=== PATIENT | male | born 1990 | race Caucasian/White ===

== ENCOUNTER 2016-08-11 13:50 | Emergency (ER) | payer OTHER ==
[~2016-08-11] VITALS: Ht 167.6 cm; Wt 80.4 kg
[2016-08-11 13:52] VITALS: TEMP 36.7; Ht 167.6 cm; Wt 80.4 kg
[2016-08-11] MEDS ORDERED: DEXAMETHASONE SOD INJ 10 MG/ML VIAL IM ONE (14:30)
[2016-08-11] MEDS ORDERED: AMPH30CA3 PO (14:42)
--- NOTE | 2016-08-11 14:42 | EMERGENCY ROOM VISIT NOTE ---
ED Visit Note First contact with patient: 14:13 CHIEF COMPLAINT: Rash HISTORY OF PRESENT ILLNESS: This 25-year-old male patient presents to the emergency department ambulatory complaining of a rash to the arms and legs which started several weeks ago. The patient denies fever, chills, nausea, or loss of appetite. They deny any URI symptoms. The patient has tried steroid injection. The patient states the rash is itchy and rates the discomfort as 6/ 10. No change in food, soap, detergents. No new medications. No weakness or numbness. 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 He states that he is exposed to poison nearly every day. He states that he has the rash to the arms and legs and it is very itchy. He has been trying bleach. He states he was also seen at another hospital and had an injection of Decadron. He states that the rash is between the fingers and on the arms and legs. REVIEW OF SYSTEMS: A 6 system review of systems was completed with positives and pertinent negatives listed in the HPI. ALLERGIES: No known drug allergies MEDICATIONS: Adderall PMH: ADHD SOCIAL HISTORY: The patient is employed PHYSICAL EXAM: Vital Signs: Reviewed Nurse's notes, vital signs stable. GENERAL : This is a 25-year-old male, in no acute distress, well-developed, well- nourished. SKIN: There are multiple linear excoriated areas to the arms and legs. There is no surrounding cellulitis. There are no vesicles. Capillary refill less than 2 seconds. EMERGENCY DEPARTMENT COURSE: The patient was seen and examined. Previous visits were reviewed. The patient has a rash diffusely over his body that is itchy. Does not appear to be infectious. This may represent Rhus dermatitis as the patient works outside and believes he has gotten poison anny. I also entertained the possibility of scabies. The patient is adamant that this could not be scabies and does not wish to be treated for scabies. He will be given a shot of 10 mg IM Decadron and a prescription for Medrol Dosepak. He should try Claritin for itching. He could try Zanfel to help remove the oils from his skin. He should stop using bleach. He should return with any worsening symptoms. Current/Historical Medications Scheduled Amphetamine-Dextroamphetamine (Adderall), 15 MG PO PM Amphetamine-Dextroamphetamine 30MG (Adderall Xr 30MG), 30 MG PO QAM Methylprednisolone (Medrol Dosepak), 1 PKT PO UD Allergies Coded Allergies: No Known Allergies (Unverified , 08/11/16) Vital Signs Date Time Temp Pulse Resp B/P (MAP) Pulse Ox O2 Delivery O2 Flow Rate FiO2 08/11/16 15:06 95 18 119/74 98 Room Air 08/11/16 15:05 88 20 119/74 98 08/11/16 13:52 36.7 93 18 130/77 96 Room Air Medications Administered Medications (Trade) Dose Ordered Sig/Daryl Route Start Time Stop Time Status Last Admin Dose Admin Dexamethasone Sodium Phosphate (Decadron Inj) 10 mg NOW ONCE IM 08/11/16 14:30 08/11/16 14:31 DC 08/11/16 14:49 10 MG Departure Information Impression Primary Impression: Rhus dermatitis Dispostion Home / Self-Care Condition GOOD Prescriptions Methylprednisolone (MEDROL DOSEPAK) 4 Mg Filippo 1 PKT PO UD, #1 PKT Prov: Romelia Haywood PA-C 08/11/16 Referrals No Doctor, Assigned (PCP) Patient Instructions ED Dermatitis Poison Anny, [facility], Poison Anny [place] Avoid Additional Instructions Try Zanfel, you can buy it over the counter, to remove the oils. Do not use bleach on your skin Prednisone as prescribed You may try claritin (antihistamine) for itching Return with worsening symptoms
[2016-08-11] MEDS ORDERED: AMPH1TAB PO (14:43)
[2016-08-11] MEDS ORDERED: METH4PAK PO (14:45)
[2016-08-11 15:06] VITALS: BP 119/74; PULSE 95; O2SAT 98
== END 2016-08-11 15:05 | disposition home or self-care (01) ==
LOC: C.EDB 13:51 → C.EDD 15:05
DX: L23.7 Allergic contact dermatitis due to plants, except food (principal)